=== PATIENT | female | born 1980 | race American Indian/Alaskan Native ===

== ENCOUNTER 2017-09-16 06:19 | Emergency (ER) | payer BC ==
[2017-09-16 08:08] LABS: Basophils % (Auto) 0.2 % (0.0-1.8); Eosinophils # (Auto) 0.1 K/mm3 (0.0-0.4); Eosinophils % (Auto) 1.7 % (0.0-4.3); Hematocrit 34.1 % (30.3-42.9); Hemoglobin 10.7 gm/dl (10.1-14.3); Lymphocytes # (Auto) 0.7 K/mm3 (1.2-5.4); Lymphocytes % (Auto) 7.7 % (13.4-35.0); Mean Corpuscular HGB Conc 32 % (30-34); Mean Corpuscular Volume 74 fl (79-97); Monocytes # (Auto) 0.4 K/mm3 (0.0-0.8); Monocytes % (Auto) 4.7 % (0.0-7.3); Platelet Count 340 K/mm3 (140-440); Red Blood Count 4.61 M/mm3 (3.65-5.03); Red Cell Distribution Width 15.9 % (13.2-15.2)
[2017-09-16 08:09] LABS: Bilirubin,Urine NEG (Negative); Blood,Urine NEG (Negative); Color,Urine Yellow (Yellow); Mucus,Urine FEW /HPF; Protein,Urine <15 mg/dL mg/dL (Negative); Urobilinogen,Urine < 2.0 mg/dL (<2.0); WBC,Urine < 1.0 /HPF (0.0-6.0)
[2017-09-16 08:13] LABS: Mean Corpuscular Hemoglobin 23 pg (28-32)
[2017-09-16 08:15] LABS: HCG Qualitative,Urine Negative (Negative)
[2017-09-16 08:20] LABS: BUN/Creatinine Ratio 13; Blood Urea Nitrogen 8 mg/dL (7-17); Calcium 8.7 mg/dL (8.4-10.2); Hemolysis Index 1
--- NOTE | 2017-09-16 13:40 | Emergency Department Report ---
- General Chief complaint: Weakness Stated complaint: WEAK HARD TO BREATH Time Seen by Provider: 09/16/17 10:29 Source: patient Mode of arrival: Ambulatory Limitations: No Limitations - History of Present Illness Initial comments: This is a 36-year-old -Chinese female who presents with shortness of breath and weakness that started yesterday but increased this morning when she got to work. Patient reports waking up this morning feeling very weak but decided to continue on to work. Patient works at [employer] over the majority of the time and reports feeling lightheaded and decided to follow up in the ER for evaluation. She does have a history of asthma and currently not taking any inhalers at this time. Denies LOC, chest pain, fever, nausea or vomiting, vertigo, myalgia, and ringing or pain in the ears. MD Complaint: generalized weakness -: days(s) (2 days) Severity: moderate Severity scale (0 -10): 5 Consistency: intermittent Improves with: none Worsens with: exertion Associated Symptoms: shortness of breath. denies: chest pain, confusion, dark stools, diaphoresis, dysuria, easy bruising, fever/chills, headaches, loss of appetite, nausea/vomiting, myalgias, rash, syncope - Related Data Allergies Allergy/AdvReac Type Severity Reaction Status Date / Time onions Allergy Rash Uncoded 09/16/17 07:10 peppers Allergy Rash Uncoded 09/16/17 07:10 ED Review of Systems ROS: Stated complaint: WEAK HARD TO BREATH Other details as noted in HPI Constitutional: weakness. denies: chills, fever Respiratory: shortness of breath, SOB with exertion. denies: cough, wheezing Cardiovascular: denies: chest pain, palpitations Gastrointestinal: denies: abdominal pain, nausea, diarrhea Neurological: denies: headache, weakness, numbness, paresthesias Psychiatric: denies: anxiety, depression ED Past Medical Hx - Past Medical History Previous Medical History?: Yes Hx Asthma: Yes - Surgical History Past Surgical History?: No - Social History Smoking Status: Never Smoker Substance Use Type: None ED Physical Exam - General Limitations: No Limitations General appearance: alert, in no apparent distress - Respiratory Respiratory exam: Present: normal lung sounds bilaterally. Absent: respiratory distress - Cardiovascular Cardiovascular Exam: Present: regular rate, normal rhythm, normal heart sounds. Absent: systolic murmur, diastolic murmur, rubs, gallop - GI/Abdominal GI/Abdominal exam: Present: soft, normal bowel sounds. Absent: distended, tenderness, guarding, organomegaly, mass - Neurological Exam Neurological exam: Present: alert, oriented X3 - Psychiatric Psychiatric exam: Present: normal affect, normal mood - Skin Skin exam: Present: warm, dry, intact, normal color. Absent: rash ED Course Vital Signs 09/16/17 06:57 Temperature 98.5 F Pulse Rate 116 H Respiratory 18 Rate Blood Pressure 132/85 O2 Sat by Pulse 99 Oximetry ED Medical Decision Making - Lab Data Result diagrams: 09/16/17 07:20 09/16/17 07:20 - Medical Decision Making 36 y.o. female that presents with SOB and weakness for 2 days. History of Asthma and currently not on medication. Patient examined by me and in no distress. Vitals stable. Ordered UA, hcg, BNP, bmp, d-dimer, and cbc. D-dimer 268.14, obtained CTA of chest. CTA of chest read by radiologist. Review pulmonary report negative CTA of chest. Given prednisone 60 mg po once in ER. Patient sats 99% on room air. Patient reports feeling better. Asthma exacerbation. Start albuterol inhaler. Discharged home stable. Although up with primary care provider in 2-3 days. Critical care attestation.: If time is entered above; I have spent that time in minutes in the direct care of this critically ill patient, excluding procedure time. ED Disposition Clinical Impression: Asthma exacerbation, mild Disposition: DC-01 TO HOME OR SELFCARE Is pt being admited?: No Does the pt Need Aspirin: No Condition: Stable Instructions: Asthma (ED) Additional Instructions: It is important to use inhaler or have active albuterol inhaler and avoiding asthma triggers. Follow up with Primary Care Provider in 24-72 hours. Return to ER if short of breath, fever, chest pain, dizziness, and nausea or vomiting. Referrals: AUGUSTINE FRAIRE MD [Referring] - 3-5 Days Forms: Work/School Release Form(ED) Time of Disposition: 14:23 Print Language: CAMEROONIAN
[2017-09-16] MEDS ORDERED: DELTASONE PO ONE (14:17)
[2017-09-16 14:47] VITALS: BP 144/72
--- NOTE | 2017-09-20 12:56 | XRay Report ---
ROUTINE CHEST, TWO VIEWS: HISTORY: Cough. The trachea, heart, mediastinal contour, lung jeffries and bony thorax are unremarkable. IMPRESSION: Unremarkable chest x-ray.
--- NOTE | 2017-09-20 12:56 | Cat Scan Report ---
CT HEAD WITHOUT CONTRAST: HISTORY: Weakness. TECHNIQUE: Sequential 2.5mm CT images. COMPARISON: none. FINDINGS: Cerebral Parenchyma: Within normal limits. Cerebellum: Within normal limits. Brainstem: Within normal limits. Ventricles: Normal. Sella: Normal. Extra-axial spaces: Normal. Basal Cisterns: Normal. Intracranial Hemorrhage: None. Midline Shift: None. Calvarium: Normal. Sinuses: Normal. Mastoid Air Cells: Normal. Visualized Orbits: Normal. IMPRESSION: Cranial CT scan within normal limits.
--- NOTE | 2017-09-20 12:57 | Cat Scan Report ---
CTA CHEST: HISTORY: Elevated d-dimer. COMPARISON: none. TECHNIQUE: Helical CT in 1.25mm intervals following IV contrast. Pulmonary embolus protocol. Sagittal and coronal reformatted images. Rotational MIP images. FINDINGS: Contrast bolus is satisfactory. No pulmonary embolus is identified. Thyroid gland: Normal. Tracheobronchial tree: Normal. Esophagus: Normal. Heart: Normal. Pericardium: Normal. Mediastinum: Normal. Lung Ruby: normal. Pleural Spaces: Normal. Musculoskeletal: Normal. IMPRESSION: No evidence for pulmonary embolus. Unremarkable CT chest with contrast.
== END 2017-09-16 14:47 | disposition home or self-care (01) ==
LOC: ED 06:19
DX: J45.901 Unspecified asthma with (acute) exacerbation (principal); Z91.02 Food additives allergy status
CPT/HCPCS: 36415; 70450; 71046; 71275; 80048; 81001; 81025; 83880; 85025; 85379; 93005; 93010; 99284; J7512; Q9967